=== PATIENT | female | born 1930 | race Caucasian/White ===

== ENCOUNTER 2017-05-07 16:00 | Inpatient (IN) ==
[2017-05-07] MEDS ORDERED: cloNIDine HCl 0.1 MG TABLET PO PRN (20:58)
[2017-05-07] MEDS: Aspirin 325 MG TABLET PO SCH (23:02)
[2017-05-08] MEDS: *HR* OxyCODONE/APAP 5/325 TABLET PO PRN ×2 (06:13→20:42)
[2017-05-08 07:26] LABS: Basophils # 0.1 K/mcL (0.0-0.2); Basophils % 1.3 %; Eosinophils # 0.2 K/mcL (0.0-0.6); Eosinophils % 2.8 %; Hematocrit 30.8 % (35.3-44.9); Hemoglobin 10.6 g/dL (11.5-15.4); Immature Granulocytes % 2.2 % (0-4); Lymphocytes # 1.6 K/mcL (0.6-4.6); Lymphocytes % 19.9 %; Mean Corpuscular HGB Conc 34.4 g/dL (31.6-35.5); Mean Corpuscular Hemoglobin 31.7 pg (28.0-33.3); Mean Corpuscular Volume 92.2 fL (83.0-100.0); Mean Platelet Volume 10.6 fL (9.4-12.4); Monocytes # 0.7 K/mcL (0.0-1.3); Monocytes % 9.5 %; Platelet Count 149 K/mcL (140-400); Red Blood Count 3.34 M/mcL (3.82-4.97); Red Cell Distribution Width 14.5 % (11.5-14.5); Segmented Neutrophils % 64.3 %
[2017-05-08 07:30] LABS: INR 1.1; Prothrombin Time 11.3 Seconds (9.4-12.1)
[2017-05-08 07:33] LABS: Activated Partial Thrombo Time 26.5 Seconds (26.0-36.0)
[2017-05-08 07:37] LABS: BUN/Creatinine Ratio 20 (6-26); Blood Urea Nitrogen 19 mg/dL (8-23); Calcium 8.8 mg/dL (8.6-10.3); Carbon Dioxide 26 mEq/L (23-29); Chloride 104 mEq/L (98-107); Glucose 115 mg/dL (70-105); Osmolality,Calculated 283 (280-300); Potassium 3.8 mEq/L (3.5-5.1); Sodium 135 mEq/L (136-145); eGFR For African Americans > 60 (> 60); eGFR For Non-African Americans 57 (> 60)
[2017-05-08] MEDS: Furosemide 40 MG TABLET PO SCH (09:08)
[2017-05-08] MEDS: Cholecalciferol (D-3) 1,000 UNIT TABLET PO SCH (09:08)
[2017-05-08] MEDS: Aspirin 325 MG TABLET PO SCH ×2 (09:08→20:43)
[2017-05-08] MEDS: predniSONE 5 MG TABLET PO SCH (09:09)
--- NOTE | 2017-05-08 12:34 | Internal Med History&Physical ---
Date of Encounter: 05/08/17 Time of Encounter: 12:30 Assessment and Plan (1) Status post fracture of right hip Current visit: Yes Status: Acute PT/OT to eval and treat. continue current pain regimen. monitor. and f/u with ortho as scheduled. (2) Hypertension Current visit: No Status: Acute controlled with current meds. monitor BP Qualifiers: Hypertension type: essential hypertension Qualified Code(s): I10 - Essential (primary) hypertension (3) Enlarged thyroid Current visit: No Status: Acute patient states started 12 yrs ago. will order TSH and free T4. Internal Medicine - H&P: HPI Admitted From: Intrahospital Transfer Plans for Post Hospital Care: Home History of present illness: Ms. Horner is a 86 year old female admitted to rehab unit status post right hip fracture. After having a fall at home. Past medical history includes CHF, G.I. bleed, hyperlipidemia, hypertension. Has been on chronic steroid use for polymyalgia rheumatica. hx of thyroid nodule, patient states has been there for 12 yrs. states pain is controlled. bowels normal. maintaining appetite and hydration. son at bedside. Past Med Surg Social Fam HX - Past Medical History Medical history: GI bleed, hyperlipidemia, hypertension, other Psychiatric history: no psych history - Past Surgical History Surgical History: appendectomy, hysterectomy, other - Social History Smoking Status: Former smoker Smokeless Tobacco Status: No Alcohol use: none Drug use: none - Family History Father History Unknown: Yes Mother History Unknown: Yes Adopted: No Family Member Ethnicity: Non- Living Status: Hx Family Neurologic Disorders: Yes Internal Medicine - H&P: Meds Lisinopril/Hydrochlorothiazide [Zestoretic 10-12.5 mg Tablet] 1 tab PO DAILY [History] predniSONE [PredniSONE] 5 mg PO DAILY #30 tablet 11/17/15 [Rx] Cholecalciferol (D-3) [Vitamin D] 1,000 unit PO DAILY 05/04/17 [History] Furosemide [Lasix] 40 mg PO DAILY 05/04/17 [History] Aspirin 325 mg PO BID #0 tablet 05/07/17 [Rx] Omeprazole [PriLOSEC] 40 mg PO DAILY@0630 #30 capsule. 05/07/17 [Rx] OxyCODONE/APAP 5/325 [Percocet 5/325 MG] 1 each PO Q6HR PRN 7 Days #28 tablet [Rx] Polyethylene Glycol 3350 [MiraLAX] 17 gm PO DAILY PRN powd.pack 05/07/17 [Rx] 3 Allergy/AdvReac Type Severity Reaction Status Date / Time No Known Allergies Allergy Verified 05/04/17 09:07 All Systems PM: A 10-system review of systems was performed and is negative for pertinent findings except as documented above in the HPI. - Constitutional Constitutional: no chills, no fever(s), no night sweats - EENT Eyes: no change in vision, no discharge, no pain, no photophobia Ears: no ear discharge, no ear pain, no tinnitus Nose, mouth and throat: no dysphagia, no nasal discharge, no neck pain, no sore throat - Cardiovascular Cardiovascular ROS IM: no chest pain, no diaphoresis, no dyspnea, no lightheadedness, no palpitations, no syncope - Respiratory Respiratory: no cough, no dyspnea, no wheezing, no excessive phlegm production - Gastrointestinal Gastrointestinal: no abdominal pain, no diarrhea, no hematemesis, no hematochezia, no melena, no nausea, no vomiting - Genitourinary Genitourinary: no change in urinary stream, no dysuria, no flank pain, no hematuria - Musculoskeletal Musculoskeletal ROS IM: no numbness, no tingling - Integumentary Integumentary IM: no rash, no unusual bruising - Neurological Neurological ROS: no confusion, no convulsions, no focal weakness, no numbness, no tingling, no tremor(s) - Hematologic/Lymphatic Hematologic/Lymphatic: no easy bruising - Constitutional Vitals: Temp Pulse Resp BP Pulse Ox 98.6 F 77 16 152/73 94 05/08/17 09:08 05/08/17 09:08 05/08/17 09:08 05/08/17 09:08 05/08/17 09:08 General appearance: Present: A&O X 3, pleasant, no acute distress, answers questions appropriately - Head Head exam: Present: atraumatic, normocephalic - Eye Eye exam: Present: PERRL, conjuntiva pink, sclera anicteric Pupils: Present: PERRL - Neck Neck exam general surgery: Present: supple, trachea midline. Absent: lymphadenopathy - Respiratory Respiratory exam: Present: CTAB. Absent: accessory muscle use, rales, rhonchi, wheezes - Cardiovascular Cardiovascular exam: Present: RRR, +S1, +S2. Absent: diastolic murmur, gallop, rubs, systolic murmur - GI/Abdominal GI/Abdominal exam: Present: normal bowel sounds, soft, no peritoneal signs. Absent: distended, tenderness - Extremities Exam Extremities exam: Present: warm, radial pulses palpable and symmetrical. Absent : calf tenderness, cyanotic, pedal edema - Neurological Exam Neurological exam: Present: CN II-XII intact, oriented X3, no focal deficits. Absent: pronater drift, facial droop, speech deficit - Skin Skin exam: Present: dry, intact Additional comments: Right hip incision well approximated with dressing intact. No drainage. No signs of infection. Internal Med - H&P Results - Labs CBC & Chem 7: 05/08/17 07:03 05/08/17 07:03 Labs: Short CBC 05/08/17 Range/Units 07:03 WBC 7.8 (4.3-11.1) K/mcL Hgb 10.6 L (11.5-15.4) g/dL Hct 30.8 L (35.3-44.9) % Plt Count 149 (140-400) K/mcL Neutrophils # 5.0 (1.6-8.9) K/mcL BMP 05/08/17 07:03 Sodium 135 L Potassium 3.8 Chloride 104 Carbon Dioxide 26 BUN 19 Creatinine 0.94 Glucose 115 H Calcium 8.8
[2017-05-09] MEDS: *HR* Enoxaparin 40 MG/0.4 ML SYRINGE SQ SCH (06:27)
[2017-05-09] MEDS: Aspirin 325 MG TABLET PO SCH ×2 (09:47→21:16)
[2017-05-09] MEDS: Aspirin 81 MG TAB.CHEW PO SCH (09:47)
[2017-05-09] MEDS: Furosemide 40 MG TABLET PO SCH (09:56)
[2017-05-09] MEDS: predniSONE 5 MG TABLET PO SCH (09:56)
[2017-05-09] MEDS: Cholecalciferol (D-3) 1,000 UNIT TABLET PO SCH (09:56)
[2017-05-09] MEDS: *HR* OxyCODONE/APAP 5/325 TABLET PO PRN (10:28)
[2017-05-09 12:07] LABS: Thyroid Stimulating Hormone 1.717 mcIU/mL (0.340-5.600)
--- NOTE | 2017-05-09 12:57 | Internal Med Progress Note ---
Date of Encounter: 05/09/17 Time of Encounter: 12:54 - Assessment and plan (1) Status post fracture of right hip Current Visit: Yes Status: Acute Assessment and plan: No acute issues. Surgical site appears healthy and intact. Patient progressing well with physical therapy. Patient with some complaints of pain during mobilization, but states that her pain medication has been adequate. Distal CV exam appears normal (2) Hypertension Current Visit: No Status: Acute Assessment and plan: Vital signs are stable. We will continue with current medications Qualifiers: Hypertension type: essential hypertension Qualified Code(s): I10 - Essential (primary) hypertension (3) Enlarged thyroid Current Visit: No Status: Acute Assessment and plan: No acute issues. Patient denies any difficulty with swallow or airway clearance. We will continue to monitor. - Time Spent With Patient less than 15 minutes - Subjective Interval history: Pt c/o slight pain to her right hip after therapy, but states that when she takes her pain meds they have been effective. Patient also with complaints of slight dyspnea on exertion. Patient denies productive cough or orthopnea. Denies any chest discomforts or palpitations. - Constitutional Vitals: Temp Pulse Resp BP Pulse Ox 98.4 F 76 16 170/72 95 05/09/17 07:03 05/09/17 07:03 05/09/17 07:03 05/09/17 07:03 05/09/17 07:03 General appearance: Present: A&O X 3, pleasant, no acute distress, answers questions appropriately - Head Head exam: Present: atraumatic, normocephalic - Eye Eye exam: Present: PERRL, conjuntiva pink, sclera anicteric Pupils: Present: PERRL - Neck Neck exam general surgery: Present: supple, trachea midline. Absent: lymphadenopathy - Respiratory Respiratory exam: Present: CTAB. Absent: accessory muscle use, rales, rhonchi, wheezes Additional comments: Lungs are CTA with diminished bases. Resp effort appears relaxed. - Cardiovascular Cardiovascular exam: Present: RRR, +S1, +S2. Absent: diastolic murmur, gallop, rubs, systolic murmur - GI/Abdominal GI/Abdominal exam: Present: normal bowel sounds, soft, no peritoneal signs. Absent: distended, tenderness - Extremities Exam Extremities exam: Present: warm, radial pulses palpable and symmetrical. Absent : calf tenderness, cyanotic, pedal edema Additional comments: Right hip sugical incision appears healthy and intact. Noted moderate amt of ecchymosis around surgical site. Distal CV WNL being warm and cap refill <3 sec. - Neurological Exam Neurological exam: Present: CN II-XII intact, oriented X3, no focal deficits. Absent: pronater drift, facial droop, speech deficit - Skin Skin exam: Present: dry, intact Internal Medicine: Result - Labs CBC & Chem 7: 05/08/17 07:03 05/08/17 07:03 - ABG Interpretation ABG results: PT/INR, D-dimer PT 11.3 Seconds (9.4-12.1) 05/08/17 07:03 - Impressions Impressions Thyroid Ultrasound 05/08/17 13:01 IMPRESSION: Nodule left mid thyroid lobe: ACR TI-RADS 3: Recommend: Ultrasound-guided fine needle aspiration. ACR TI-RADS recommendations TR5 (>=7 points): FNA if >= 1 cm, follow-up if 0.5-0.9 cm every year for 5 years. TR4 (4-6 points): FNA if >= 1.5 cm, follow-up if 1-1.4 cm in 1, 2, 3 and 5 years. TR3 (3 points): FNA if >= 2.5 cm, follow-up if 1.5-2.4 cm in 1, 3 and 5 years. ACR TI-RADS recommends that no more than two nodules with the highest ACR TI-RADS total point should be biopsied and no more than four nodules should be followed. D/ / 05/08/2017 16:39:48 Naif Gandhi MD / [email or web address] Interpreting Provider: Naif Gandhi MD Consult Discharge Plan - Plan Referrals: Robles Rodriguez Jr, MD [Primary Care Provider] -
[2017-05-10] MEDS: *HR* Enoxaparin 40 MG/0.4 ML SYRINGE SQ SCH (04:30)
[2017-05-10] MEDS: *HR* OxyCODONE/APAP 5/325 TABLET PO PRN (06:45)
[2017-05-10] MEDS: Furosemide 40 MG TABLET PO SCH (09:41)
[2017-05-10] MEDS: predniSONE 5 MG TABLET PO SCH (09:41)
[2017-05-10] MEDS: Aspirin 81 MG TAB.CHEW PO SCH (09:41)
[2017-05-10] MEDS: Aspirin 325 MG TABLET PO SCH (09:41)
[2017-05-10] MEDS: Cholecalciferol (D-3) 1,000 UNIT TABLET PO SCH (09:41)
--- NOTE | 2017-05-10 15:07 | Internal Med Progress Note ---
Date of Encounter: 05/10/17 Time of Encounter: 15:05 - Assessment and plan (1) Status post fracture of right hip Current Visit: Yes Status: Acute Assessment and plan: continue PT/OT. will follow progress. continue percocet for pain. monitor right groin area, may need muscle relaxer. f/u with ortho as scheduled. (2) Hypertension Current Visit: Yes Status: Acute Assessment and plan: controlled with current meds. monitor. BP Qualifiers: Hypertension type: essential hypertension Qualified Code(s): I10 - Essential (primary) hypertension (3) Enlarged thyroid Current Visit: Yes Status: Chronic Assessment and plan: TSH and Free T4 normal. - Time Spent With Patient 25 - 35 minutes - Subjective Interval history: participating well with therapy. c/o left groin soreness that goes down to inner thigh to knee. states not used to doing exercises. has been very sedentary at home for several months. states pain regimen is working. denies chest pain, SOB, fever, chills, NVD. maintaining appetite and hydration. bowels moving normally. - Constitutional Vitals: Temp Pulse Resp BP Pulse Ox 98.4 F 80 16 134/64 96 05/10/17 07:00 05/10/17 07:00 05/10/17 07:00 05/10/17 07:00 05/10/17 07:00 General appearance: Present: A&O X 3, pleasant, no acute distress, answers questions appropriately - Head Head exam: Present: atraumatic, normocephalic - Eye Eye exam: Present: PERRL, conjuntiva pink, sclera anicteric Pupils: Present: PERRL - Neck Neck exam general surgery: Present: supple, trachea midline. Absent: lymphadenopathy - Respiratory Respiratory exam: Present: CTAB. Absent: accessory muscle use, rales, rhonchi, wheezes - Cardiovascular Cardiovascular exam: Present: RRR, +S1, +S2. Absent: diastolic murmur, gallop, rubs, systolic murmur - GI/Abdominal GI/Abdominal exam: Present: normal bowel sounds, soft, no peritoneal signs. Absent: distended, tenderness - Extremities Exam Extremities exam: Present: warm, radial pulses palpable and symmetrical. Absent : calf tenderness, cyanotic, pedal edema - Neurological Exam Neurological exam: Present: CN II-XII intact, oriented X3, no focal deficits. Absent: pronater drift, facial droop, speech deficit - Skin Skin exam: Present: dry, intact Additional comments: right hip incision, dry and intact. no drainage. no warmth. no signs of infection. minimal amt of bruising surrounding. Internal Medicine: Result - Labs CBC & Chem 7: 05/08/17 07:03 05/08/17 07:03 - ABG Interpretation ABG results: PT/INR, D-dimer PT 11.3 Seconds (9.4-12.1) 05/08/17 07:03 - Impressions Impressions Chest X-Ray 05/09/17 15:07 IMPRESSION: No acute cardiopulmonary abnormality. Bibasilar atelectasis. D/ / Sommer Teixeira MD / Sommer Teixeira MD Interpreting Provider: Sommer Teixeira MD Consult Discharge Plan - Plan Referrals: Robles Rodriguez Jr, MD [Primary Care Provider] -
[2017-05-11] MEDS: *HR* Enoxaparin 40 MG/0.4 ML SYRINGE SQ SCH (04:52)
[2017-05-11] MEDS: Aspirin 81 MG TAB.CHEW PO SCH (09:49)
[2017-05-11] MEDS: *HR* OxyCODONE/APAP 5/325 TABLET PO PRN (09:50)
[2017-05-11] MEDS: Furosemide 40 MG TABLET PO SCH (09:50)
[2017-05-11] MEDS: Cholecalciferol (D-3) 1,000 UNIT TABLET PO SCH (09:50)
[2017-05-11] MEDS: predniSONE 5 MG TABLET PO SCH (09:50)
--- NOTE | 2017-05-11 12:14 | Internal Med Progress Note ---
Date of Encounter: 05/11/17 Time of Encounter: 12:13 - Assessment and plan (1) Status post fracture of right hip Current Visit: Yes Status: Acute Assessment and plan: No acute issues. Patient continues to progress with physical therapy. Surgical site continues to appear healthy and healing well. We will continue with current plan of care. Pain is well managed with current medication regimen. (2) Hypertension Current Visit: Yes Status: Chronic Assessment and plan: Vital signs stable. We will continue with current medications. Qualifiers: Hypertension type: essential hypertension Qualified Code(s): I10 - Essential (primary) hypertension (3) Enlarged thyroid Current Visit: Yes Status: Chronic Assessment and plan: No acute issues. Patient's thyroid panel shows no acute issues. Patient denies any difficulty with swallow or airway clearance. Patient had ultrasound which showed a 5 cm nodule. Patient to have further diagnostic evaluation at [place] scheduled after discharge from this facility. Patient scheduled for discharge on Sunday. - Subjective Interval history: Pt c/o slight pain to her right hip after therapy, but states that when she takes her pain meds they have been effective. Patient also with complaints of slight dyspnea on exertion. Patient denies productive cough or orthopnea. Denies any chest discomforts or palpitations. Patient had a recent chest x-ray which showed bilateral basilar atelectasis. Patient with some spirometer at bedside states that she has been using it frequently. - Constitutional Vitals: Temp Pulse Resp BP Pulse Ox 98.6 F 81 16 122/67 97 05/11/17 07:43 05/11/17 07:43 05/11/17 07:43 05/11/17 07:43 05/11/17 07:43 General appearance: Present: A&O X 3, pleasant, no acute distress, answers questions appropriately - Head Head exam: Present: atraumatic, normocephalic - Eye Eye exam: Present: PERRL, conjuntiva pink, sclera anicteric Pupils: Present: PERRL - Neck Neck exam general surgery: Present: supple, trachea midline. Absent: lymphadenopathy - Respiratory Respiratory exam: Present: CTAB. Absent: accessory muscle use, rales, rhonchi, wheezes Additional comments: Noted decreased breath sounds to basilar lazar, but otherwise clear to auscultation. Respiratory effort appears relaxed - Cardiovascular Cardiovascular exam: Present: RRR, +S1, +S2. Absent: diastolic murmur, gallop, rubs, systolic murmur - GI/Abdominal GI/Abdominal exam: Present: normal bowel sounds, soft, no peritoneal signs. Absent: distended, tenderness - Extremities Exam Extremities exam: Present: pedal edema, warm, radial pulses palpable and symmetrical. Absent: calf tenderness, cyanotic Additional comments: Slight nonpitting edema noted bilateral lower legs. Right hip surgical site appears intact and healthy. - Neurological Exam Neurological exam: Present: CN II-XII intact, oriented X3, no focal deficits. Absent: pronater drift, facial droop, speech deficit - Skin Skin exam: Present: dry, intact Internal Medicine: Result - Labs CBC & Chem 7: 05/08/17 07:03 05/08/17 07:03 - ABG Interpretation ABG results: PT/INR, D-dimer PT 11.3 Seconds (9.4-12.1) 05/08/17 07:03 - Impressions Impressions Thyroid Ultrasound 05/08/17 13:01 IMPRESSION: Nodule left mid thyroid lobe: ACR TI-RADS 3: Recommend: Ultrasound-guided fine needle aspiration. ACR TI-RADS recommendations TR5 (>=7 points): FNA if >= 1 cm, follow-up if 0.5-0.9 cm every year for 5 years. TR4 (4-6 points): FNA if >= 1.5 cm, follow-up if 1-1.4 cm in 1, 2, 3 and 5 years. TR3 (3 points): FNA if >= 2.5 cm, follow-up if 1.5-2.4 cm in 1, 3 and 5 years. ACR TI-RADS recommends that no more than two nodules with the highest ACR TI-RADS total point should be biopsied and no more than four nodules should be followed. D/ / 05/08/2017 16:39:48 Naif Gandhi MD / [email or web address] Interpreting Provider: Naif Gandhi MD Consult Discharge Plan - Plan Referrals: Robles Rodriguez Jr, MD [Primary Care Provider] -
[2017-05-12] MEDS: *HR* Enoxaparin 40 MG/0.4 ML SYRINGE SQ SCH (04:34)
[2017-05-12] MEDS: Cholecalciferol (D-3) 1,000 UNIT TABLET PO SCH (09:05)
[2017-05-12] MEDS: Furosemide 40 MG TABLET PO SCH (09:06)
[2017-05-12] MEDS: predniSONE 5 MG TABLET PO SCH (09:07)
[2017-05-12] MEDS: Aspirin 81 MG TAB.CHEW PO SCH (09:07)
[2017-05-12] MEDS: *HR* OxyCODONE/APAP 5/325 TABLET PO PRN (13:06)
--- NOTE | 2017-05-12 13:28 | Internal Med Progress Note ---
Date of Encounter: 05/12/17 Time of Encounter: 13:28 - Assessment and plan (1) Status post fracture of right hip Current Visit: Yes Status: Acute Assessment and plan: We will continue with therapies as planned. Anticipated discharge 05/14/2017. (2) Polymyalgia rheumatica Current Visit: No Status: Chronic Assessment and plan: Will recommend prednisone taper at discharge, over a long period of time. (3) Enlarged thyroid Current Visit: Yes Status: Chronic Assessment and plan: Patient and family understand need for outpatient scan. Assuming that the nuclide scan is negative, will place her on suppressive Synthroid or similar and then see if she decreases in size. If not, will need referral to cork tipper and or head and neck surgery. (4) Hypertension Current Visit: Yes Status: Chronic Assessment and plan: Clinically stable. We will continue home regimen and follow. Qualifiers: Hypertension type: essential hypertension Qualified Code(s): I10 - Essential (primary) hypertension - Time Spent With Patient 25 - 35 minutes - Subjective Interval history: Patient is with complaint of surgical leg pain, after therapy, to do 8/10 She was very fatigued after therapy but even worse, last evening. She is relieved that she is finished with therapy for the day and will have a day off tomorrow. She looks forward to going home on 05/14/2017. Bowels are moving adequately and she has adequate control of bladder and bowel function. She notes that she continues to have dyspnea with exertion but she is using her incentive spirometer. Patient has no complaint of chest discomfort, dyspnea, orthopnea, palpitations, nausea or vomiting, constipation or diarrhea, other changes in bowel habits, difficulty with urination, rash or itching, or other new complaints, except as mentioned above. Review of systems is otherwise unremarkable. - Constitutional Vitals: Temp Pulse Resp BP Pulse Ox 98.1 F 83 19 114/65 96 05/11/17 19:00 05/11/17 19:00 05/11/17 19:00 05/11/17 19:00 05/11/17 19:00 General appearance: Present: A&O X 3, pleasant, no acute distress, answers questions appropriately Exam: Examinatioin: (Except as mentioned above): General: In no apparent distress. Alert and oriented 3. Nondiaphoretic. Head: Atraumatic and normocephalic. Respiratory: No use of accessory muscles. Lungs are clear throughout. Normal airflow. Cardiovascular: Regular rate and rhythm without murmur appreciated. Abdomen: Bowel sounds are normal. No hepatosplenomegaly mass or tenderness appreciated. Obese and therefore difficult to palpate deeply. Extremities: No cyanosis clubbing or edema. Skin: Warm and non-diaphoretic with no new lesions noted. Internal Medicine: Result - Labs CBC & Chem 7: 05/08/17 07:03 05/08/17 07:03 - ABG Interpretation ABG results: PT/INR, D-dimer PT 11.3 Seconds (9.4-12.1) 05/08/17 07:03 Consult Discharge Plan - Plan Referrals: Robles Rodriguez Jr, MD [Primary Care Provider] -
[2017-05-13] MEDS: *HR* Enoxaparin 40 MG/0.4 ML SYRINGE SQ SCH (05:15)
[2017-05-13] MEDS: Acetaminophen 325 MG TABLET PO PRN ×2 (05:16→18:11)
[2017-05-13] MEDS: Aspirin 81 MG TAB.CHEW PO SCH (11:44)
[2017-05-13] MEDS: Furosemide 40 MG TABLET PO SCH (11:44)
[2017-05-13] MEDS: Cholecalciferol (D-3) 1,000 UNIT TABLET PO SCH (12:05)
[2017-05-13] MEDS: predniSONE 5 MG TABLET PO SCH (12:05)
--- NOTE | 2017-05-13 13:55 | Internal Med Progress Note ---
Date of Encounter: 05/13/17 Time of Encounter: 13:54 - Assessment and plan (1) Status post fracture of right hip Current Visit: Yes Status: Acute Assessment and plan: We will continue with therapies as planned. Anticipated discharge 05/14/2017. As above, discussed some discharge planning with her. (2) Polymyalgia rheumatica Current Visit: No Status: Chronic Assessment and plan: Will recommend prednisone taper at discharge, over a long period of time. (3) Enlarged thyroid Current Visit: Yes Status: Chronic Assessment and plan: Please see my comments from yesterday. Patient and family aware of general plan.. (4) Hypertension Current Visit: Yes Status: Chronic Assessment and plan: Clinically stable. We will continue home regimen and follow. Qualifiers: Hypertension type: essential hypertension Qualified Code(s): I10 - Essential (primary) hypertension - Subjective Interval history: Patient is without complaint. She has a concern about her stability at home getting down the romo to her bathroom. I suggested a bedside commode be considered and she said she was already told that by therapy. I suggested that we discussed this with therapy and social service, tomorrow, prior to her discharge. Patient has no complaint of chest discomfort, dyspnea, orthopnea, palpitations, nausea or vomiting, constipation or diarrhea, other changes in bowel habits, difficulty with urination, rash or itching, or other new complaints, except as mentioned above. Review of systems is otherwise unremarkable. - Constitutional Vitals: Temp Pulse Resp BP Pulse Ox 97.4 F L 88 16 134/69 94 05/13/17 07:00 05/13/17 07:00 05/13/17 07:00 05/13/17 07:00 05/13/17 07:00 General appearance: Present: A&O X 3, pleasant, no acute distress, answers questions appropriately Exam: Examinatioin: (Except as mentioned above): General: In no apparent distress. Alert and oriented 3. Nondiaphoretic. Head: Atraumatic and normocephalic. Respiratory: No use of accessory muscles. Lungs are clear throughout. Normal airflow. Cardiovascular: Regular rate and rhythm without murmur appreciated. Abdomen: Bowel sounds are normal. No hepatosplenomegaly mass or tenderness appreciated. Obese and therefore difficult to palpate deeply. Patient is examined upright in chair and this also limits exam. Extremities: No cyanosis clubbing or edema. Skin: Warm and non-diaphoretic with no new lesions noted. Internal Medicine: Result - Labs CBC & Chem 7: 05/08/17 07:03 05/08/17 07:03 - ABG Interpretation ABG results: PT/INR, D-dimer PT 11.3 Seconds (9.4-12.1) 05/08/17 07:03 Consult Discharge Plan - Plan Referrals: Robles Rodriguez Jr, MD [Primary Care Provider] -
[2017-05-14] MEDS: *HR* Enoxaparin 40 MG/0.4 ML SYRINGE SQ SCH (05:04)
[2017-05-14] MEDS: Acetaminophen 325 MG TABLET PO PRN (05:14)
[2017-05-14 07:10] LABS: Basophils # 0.1 K/mcL (0.0-0.2); Basophils % 1.1 %; Eosinophils # 0.1 K/mcL (0.0-0.6); Eosinophils % 1.3 %; Hematocrit 33.3 % (35.3-44.9); Hemoglobin 11.5 g/dL (11.5-15.4); Immature Granulocytes % 3.6 % (0-4); Lymphocytes # 1.8 K/mcL (0.6-4.6); Mean Corpuscular HGB Conc 34.5 g/dL (31.6-35.5); Mean Corpuscular Hemoglobin 31.7 pg (28.0-33.3); Mean Corpuscular Volume 91.7 fL (83.0-100.0); Mean Platelet Volume 10.5 fL (9.4-12.4); Monocytes # 0.7 K/mcL (0.0-1.3); Monocytes % 8.4 %; Platelet Count 206 K/mcL (140-400); Red Blood Count 3.63 M/mcL (3.82-4.97); Red Cell Distribution Width 14.2 % (11.5-14.5); Segmented Neutrophils % 62.6 %
[2017-05-14 07:19] VITALS: BP 140/67
[2017-05-14 07:25] LABS: Calcium 9.4 mg/dL (8.6-10.3); Potassium 3.5 mEq/L (3.5-5.1)
[2017-05-14] MEDS: Aspirin 81 MG TAB.CHEW PO SCH (08:21)
[2017-05-14] MEDS: Furosemide 40 MG TABLET PO SCH (08:21)
[2017-05-14] MEDS: predniSONE 5 MG TABLET PO SCH (08:21)
[2017-05-14] MEDS: Cholecalciferol (D-3) 1,000 UNIT TABLET PO SCH (08:21)
--- NOTE | 2017-05-14 13:14 | Physician Discharge Referral ---
- Diagnosis (1) Status post fracture of right hip Priority: Primary Status: Acute (2) Hypertension Priority: Secondary Status: Chronic (3) Enlarged thyroid Priority: Secondary Status: Chronic - Respiratory Orders Smoking Cessation: Smoking cessation has been advised. For more information, call the [place] Tobacco Quit Line at 3-449-IOUO-NOW. - Diet/Nutrition Diet/Nutrition Orders: Regular - Activity Activity Orders: Walker - Services Needed Following services are medically necessary services: Nursing, Physical Therapy - Transfer Medications Home Medications: Lisinopril/Hydrochlorothiazide [Zestoretic 10-12.5 mg Tablet] 1 tab PO DAILY [History] predniSONE [PredniSONE] 5 mg PO DAILY #30 tablet 11/17/15 [Rx] Cholecalciferol (D-3) [Vitamin D] 1,000 unit PO DAILY 05/04/17 [History] Furosemide [Lasix] 40 mg PO DAILY 05/04/17 [History] Aspirin 325 mg PO BID #0 tablet 05/07/17 [Rx] Omeprazole [PriLOSEC] 40 mg PO DAILY@0630 #30 capsule.dr 05/07/17 [Rx] OxyCODONE/APAP 5/325 [Percocet 5/325 MG] 1 each PO Q6HR PRN 7 Days #28 tablet [Rx] Polyethylene Glycol 3350 [MiraLAX] 17 gm PO DAILY PRN powd.pack 05/07/17 [Rx] Allergies/Adverse Reactions: 3 Allergy/AdvReac Type Severity Reaction Status Date / Time No Known Allergies Allergy Verified 05/04/17 09:07 Certification: Further, I certify that my clinical findings support that this patient is homebound (i.e. absences from home require considerable and taxing effort and are for medical reasons or spiritism services or infrequently or short duration when for other reasons) because: Homebound Reason: Patient requires assistance of a person or device to safely leave home, Leaving home requires considerable and taxing effort due to condition Attestation: My signature below is to certify that this patient is under my care and that I, or nurse practitioner, or a physician's business support assistant working with me, has a face-to -face encounter with this patient.
--- NOTE | 2017-05-14 13:19 | Discharge Summary ---
Orders not resulted at time of discharge: Pending orders 05/10/17 14:19 NM thyroid [NM] Routine 05/21/17 04:23 CBC [Complete Blood Count] [HEME] MO 05/21/17 04:24 BMP [Basic Metabolic Panel] MO 05/28/17 04:23 CBC [Complete Blood Count] [HEME] MO 05/28/17 04:24 BMP [Basic Metabolic Panel] MO Date of Encounter: 05/14/17 Time of Encounter: 13:15 - Discharge Diagnosis (1) Status post fracture of right hip Priority: Primary Status: Acute Comments: continue home PT and nursing. f.u with ortho as scheduled (2) Hypertension Priority: Secondary Status: Chronic Comments: controlled with current meds. Qualifiers: Hypertension type: essential hypertension Qualified Code(s): I10 - Essential (primary) hypertension (3) Enlarged thyroid Priority: Secondary Status: Chronic Comments: f/u with PCP Hospital course: Ms. Horner is a 87 year old female discharging to home. will continue home health PT and nursing. will f/u with ortho and PCP. Discharge discussed with: patient, family - Time Spent with Patient Total time spent providing and/or coordinating discharge services: Less than 30 minutes - Discharge Medications Home Medications: Lisinopril/Hydrochlorothiazide [Zestoretic 10-12.5 mg Tablet] 1 tab PO DAILY [History] predniSONE [PredniSONE] 5 mg PO DAILY #30 tablet 11/17/15 [Rx] Cholecalciferol (D-3) [Vitamin D] 1,000 unit PO DAILY 05/04/17 [History] Furosemide [Lasix] 40 mg PO DAILY 05/04/17 [History] Omeprazole [PriLOSEC] 40 mg PO DAILY@0630 #30 capsule. 05/07/17 [Rx] OxyCODONE/APAP 5/325 [Percocet 5/325 MG] 1 each PO Q6HR PRN 7 Days #28 tablet [Rx] Polyethylene Glycol 3350 [MiraLAX] 17 gm PO DAILY PRN powd.pack 05/07/17 [Rx] Aspirin 81 mg PO DAILY tab.chew 05/14/17 [Rx] Allergies/Adverse Reactions: 3 Allergy/AdvReac Type Severity Reaction Status Date / Time No Known Allergies Allergy Verified 05/04/17 09:07 Date of admission: 05/07/17 19:35 Primary care physician: Robles Rodriguez Jr, MD Consults: 05/07/17 20:40 Consult to Occupational Therapy [CONS] Routine Comment: Evaluate, develop and implement POC Reason for Consult: eval / tx Does patient have active BEDREST order?: No Is patient medically & hemodynamically stable?: Yes Patient assessed for mobility or mobilized this visit?: No Consult to Physical Therapy [CONS] Routine Comment: Evaluate, develop and implement POC Reason for Consult: eval / tx Does patient have active BEDREST order?: No Is patient medically & hemodynamically stable?: Yes Patient assessed for mobility or mobilized this visit?: No Consult to Recreational Therapy [CONS] Routine Comment: Evaluate, develop and implement POC Consult to Supervisor Area [CONS] Routine Reason for SW Consult: d/c planning Discharging clinician: Mason Hatch Anticipated date of discharge: 05/14/17 - Constitutional Vitals: Temp Pulse Resp BP Pulse Ox 98.2 F 72 16 140/67 96 05/14/17 07:00 05/14/17 07:00 05/14/17 07:00 05/14/17 07:00 05/14/17 07:00 General appearance: Present: A&O X 3, pleasant, no acute distress, answers questions appropriately - Head Head exam: Present: atraumatic, normocephalic - Eye Eye exam: Present: PERRL, conjuntiva pink, sclera anicteric Pupils: Present: PERRL - Neck Neck exam general surgery: Present: supple, trachea midline. Absent: lymphadenopathy - Respiratory Respiratory exam: Present: CTAB. Absent: accessory muscle use, rales, rhonchi, wheezes - Cardiovascular Cardiovascular exam: Present: RRR, +S1, +S2. Absent: diastolic murmur, gallop, rubs, systolic murmur - GI/Abdominal GI/Abdominal exam: Present: normal bowel sounds, soft, no peritoneal signs. Absent: distended, tenderness - Extremities Exam Extremities exam: Present: warm, radial pulses palpable and symmetrical. Absent : calf tenderness, cyanotic, pedal edema - Neurological Exam Neurological exam: Present: CN II-XII intact, oriented X3, no focal deficits. Absent: pronater drift, facial droop, speech deficit - Skin Skin exam: Present: dry, intact Additional comments: right hip incision healing. no signs of infection. scattered echhymosis. - Patient Status Disposition: Home Health Service Condition: Good - Ambulatory Orders Ambulatory Orders: NM thyroid [NM] Location: Determined By Patient - Discharge Instructions Follow Up With: [facility] [Provider Group] - 05/29/17 8:00 am (appintment is at 8 am and then again at 2pm the same day, no topical iodine, no thyroid med one month before, no iodine contrast on month before, no multivitamine 7 days prior. Nothhing by mouth at midnight the night before test. No shrimp 2 days befor or seafood.) Robles Rodriguez Jr, MD [Primary Care Provider] - 05/17/17 1:00 pm (follow up with [facility] of Dr. Quintanilla) Ramses Apodaca MD [Non-Partnered Physician] - 05/17/17 8:00 am (follow up has two appointments in on visit one at 8 and another at 8:30) - Diet and Activity Activity: as per physical therapy Diet: advance to your usual diet
== END 2017-05-14 15:18 | disposition home health service (06) | DRG 560 ==
LOC: INPGRE 19:35